=== PATIENT | male | born 1950 | race Caucasian/White ===

== ENCOUNTER → 2024-05-01 07:24 | Outpatient (REF) | payer MEDICARE, OTHER, SELFPAY | LOC: MRI 07:24 | PROVIDERS: ATTENDING PHYSICIAN Student in an Organized Health Care Education/Training Program; FAMILY PHYSICIAN Family Medicine | DX: M17.11 Unilateral primary osteoarthritis, right knee (principal) | CPT/HCPCS: 73721 ==